=== PATIENT | male | born 1995 | race Caucasian/White ===

== ENCOUNTER 2019-07-01 09:11 | Emergency (ER) | payer SELFPAY ==
[~2019-07-01] VITALS: Ht 190.5 cm; Wt 72.6 kg
[2019-07-01 09:14] VITALS: Ht 190.5 cm; Wt 72.6 kg
[2019-07-01 11:00] LABS: UA SPECIFIC GRAVITY 1.015 (1.005-1.035); microscopic required? YES; urine erythrocyte 3+ (NEGATIVE)
[2019-07-01 12:31] VITALS: BP 126/77
== END 2019-07-01 12:31 | disposition home or self-care (01) ==
LOC: ED 09:11
PROVIDERS: Emergency Medicine
DX: N20.2 Calculus of kidney with calculus of ureter (principal); R11.2 Nausea with vomiting, unspecified; F17.200 Nicotine dependence, unspecified, uncomplicated
CPT/HCPCS: 99406; J1100; J1885; J7030